=== PATIENT | male | born 1995 | race Caucasian/White ===

== ENCOUNTER 2022-03-11 17:05 | Emergency (ER) | payer MEDICAID ==
[~2022-03-11] VITALS: Ht 172.7 cm; Wt 77.0 kg
[2022-03-11 17:19] VITALS: BP 121/70
== END 2022-03-11 20:05 | disposition home or self-care (01) ==
LOC: ER 17:05 → EDBD 17:05 → ER 20:05
DX: Z48.02 Encounter for removal of sutures (principal)
CPT/HCPCS: 99281; Z7610